=== PATIENT | female | born 1965 | race Caucasian/White ===

== ENCOUNTER 2020-03-26 08:09 | Outpatient (CLI) | payer OTHER, SELFPAY ==
--- NOTE | ~2020-03-26 | XR_ITS ---
XR knee RT 3V 03/26/2020 08:50 INDICATION: Right knee pain PROCEDURE: 3 views right knee COMPARISON: No prior studies for comparison. FINDINGS: Fracture, dislocation or subluxation is not identified. There is mild osteoarthritis of the right knee. Small joint effusion. The soft tissues appear within normal limits. No foreign bodies a re identified. IMPRESSION: 1: Mild osteoarthritis of the right knee. 2: Small joint effusion. Reviewed, dictated and finalized at location A. MASTER
[2020-03-26 10:47] LABS: Alanine Aminotransferase 38 U/L (4-35); Albumin Level 4.4 g/dL (3.5-5.1); Alkaline Phosphatase 82 U/L (38-126); Anion Gap 8 mmol/L (8-16); Aspartate Amino Transferase 31 U/L (14-36); Bilirubin,Total 0.4 mg/dL (0.2-1.3); Blood Urea Nitrogen 18 mg/dL (7-17); Calcium 9.5 mg/dL (8.4-10.2); Carbon Dioxide 29 mmol/L (22-30); Chloride 103 mmol/L (98-107); Estimated Glomerular Filt Rate > 60; Glucose 96 mg/dL (65-105); Sodium 140 mmol/L (137-145)
[2020-03-29 11:57] LABS: GGT 45 U/L (3-70)
== END 2020-03-26 08:10 | disposition home or self-care (01) ==
PROVIDERS: PCP Family Medicine; Visit Provider Family Medicine
DX: R94.5 Abnormal results of liver function studies (principal); M25.561 Pain in right knee; M17.11 Unilateral primary osteoarthritis, right knee; M25.461 Effusion, right knee
CPT/HCPCS: 36415; 73562; 80053; 82977

== ENCOUNTER 2020-04-07 08:48 | Outpatient (RCR) | payer OTHER, SELFPAY ==
--- NOTE | 2020-04-07 10:05 | PTOPEVAL ---
Thank you for referring Cassi Dial to [facility].? The patient is scheduled to be seen for therapy? __2__x/week for 8 visits. Please review, sign, date and return this plan of care FRANKLIN. I agree with and certify that the following plan of care is medically necessary. Referring Physician Date Admitting Provider: Attending Provider: Lalo Santana MD Referring Provider: *PT Outpatient Evaluation Start: 04/07/20 09:05 Freq: Status: Active Protocol: Document 04/07/20 09:05 RUBEN (Rec: 04/07/20 10:03 RUBEN [email or web address]) Therapy Assessment Status Assessment Status Assessment Status Evaluation Evaluation Information Problem Diagnosis right knee pain Onset 10/07/19 Subjective Information Pt. reports that she noticed a Query Text:As Reported By Patient/ gradual onset of right knee Family pain about 6 months ago. She first started noting pain with squatting. She reports that when she attempts to get up from a squat she needs help getting up. Pt. reports that stairs can also increase her pain. 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 She reports that her goal is to be able to squat without pain increase. 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 Hand Dominance Right Activity of Daily Living Ability Independent Indoor/Home Mobility Independent Community Mobility Independent Stairs Ability Independent Functional Cognition (Planning, Shopping Independent , Taking Medications) Cooking Yes Cleaning Yes Laundry Yes Shopping Yes Driving Yes Pain Assessment Pain Scale Pain Scale Used Numeric (1 - 10) Self Report Pain Assessment Right Knee(s) Reported Pain Level 0 Pain Description Tightness Lowest Pain Intensity 0 Greatest Pain Intensity 7 Pain Aggravating Factors Lifting,Stair Climbing Pain Score Pain Score 0: Self Report Interventions Used Interventions Used By Clinicians Activity or ADL's,Exercise Lower Extremity Range of Motion General Lower Extremity Range of Motion Gross Lower Extremity Range of Motion pt. presents with 0-130 Comments degrees bilateral knee joint
== END 2020-04-30 09:46 | disposition home or self-care (01) ==
LOC: CHSPT 08:48
PROVIDERS: PCP Family Medicine; Visit Provider Family Medicine
DX: M25.561 Pain in right knee (principal)
CPT/HCPCS: 97110; 97161; 97530

== ENCOUNTER 2020-04-18 07:18 | Outpatient (CLI) | payer OTHER, SELFPAY ==
--- NOTE | ~2020-04-18 | MM_ITS ---
EXAMINATION: MM screening [facility] BI w inessa HISTORY: Screening mammogram TECHNIQUE: Craniocaudal and mediolateral oblique 3-D tomosynthesis images were obtained and synthetic 2-D images were generated. CAD analysis was submitted and interpreted. COMPARISON: 04/06/2016, 04/01/2015, 03/21/2015 BREAST PARENCHYMAL COMPOSITION: There are scattered areas of fibroglandular density. FINDINGS: There is no evidence of suspicious mass, calcification, or architectural distortion to sugg est malignancy in either breast. There has been no suspicious interval change. IMPRESSION: 1. No mammographic evidence of malignancy. 2. Recommend routine screening mammography in one year. BI-RADS Category 1: Negative Reviewed, dictated and finalized at location A. BUILDER
== END 2020-04-18 07:19 | disposition home or self-care (01) ==
PROVIDERS: PCP Family Medicine; Visit Provider Family Medicine
DX: Z12.31 Encounter for screening mammogram for malignant neoplasm of breast (principal)
CPT/HCPCS: 77063; 77067

== ENCOUNTER → 2020-04-21 15:07 | Outpatient (REF) | payer OTHER, SELFPAY | LOC: ANHLAB 15:07 | PROVIDERS: PCP Family Medicine; Visit Provider Nurse Practitioner | DX: R22.9 Localized swelling, mass and lump, unspecified (principal); L72.11 Pilar cyst | CPT/HCPCS: 88304 ==

== ENCOUNTER 2024-09-13 09:15 | Outpatient (CLI) | payer BC, SELFPAY ==
--- OUTSIDE RECORDS SUMMARY | 2024-09-13 09:23 | XMS_ITS | Clinical Summary ---
Author Organization [facility] Address [address] [place] [id number] Care Team Providers Care Asic Design Engineer Name Role Phone Lalo Santana MD Primary Care Provider [phone] Allergies No known active allergies Medications No known medications Family History Medical History Relation Comments No Known Problems Brother Hypertension Father Mental Health Mother Relation Status Comments Brother Alive Father Alive Mother Social History Tobacco Use Types Packs/Day Years Used Date Smoking Tobacco: Never Smokeless Tobacco: Never Alcohol Use Standard Drinks/Week Comments Not Currently 0 (1 standard drink = 0.6 oz pur e alcohol) Comments No Sex and Gender Information Value Date Recorded Sex Assigned at Not on file Legal Sex Female 12:32 PM CDT Gender Identity Not on file Sexual Orientation Not on file Last Filed Vital Signs Vital Sign Reading Time Taken Comments Blood Pressure 116/74 05/29/2021 1:44 AM LIGHT ADJUSTER Pulse 70 05/29/2021 1:44 AM LIGHT ADJUSTER Temperature 36.6 C (97.9 F) 05/29/2021 1:44 AM LIGHT ADJUSTER Respiratory Rate 16 05/29/2021 1:44 AM LIGHT ADJUSTER Oxygen Saturation 100% 05/29/2021 1:44 AM LIGHT ADJUSTER Inhaled Oxygen Concentration - - Weight 93 kg (205 lb) 05/29/2021 1:44 AM LIGHT ADJUSTER Height 170.2 cm (5' 7 ) 05/29/2021 1:44 AM LIGHT ADJUSTER Body Mass Index 32.11 05/29/2021 1:44 AM LIGHT ADJUSTER Plan of Treatment Health Maintenance Due Date Last Done Comments Cervical Cancer Screening Pa p Smear (Age 30 to 64) Every 3 Years 1965 Colorectal Cancer Screening Colonoscopy (10 Years) 1965 Annual Physical 02/03/1968 Hepatitis C 1983 DTaP, Tdap and Td Vaccines ( 1 - Tdap) 02/03/1984 Cervical Cancer Screening Pa p with HPV Testing (Age 30 to 64) Every 5 Years 1995 Cervical Cancer Screening with HPV 1995 Mammogram Screening 2005 Pneumococcal Vaccine: 50+ Ye ars (1 of 1 - PCV) 2015 Zoster Vaccines (1 of 2) 2015 COVID-19 Vaccine (1 - 2023-2 5 season) 2024 Meningococcal B Vaccine Aged Out No l onger eligible based on patient's age to complete this topic Meningococcal Vaccine Aged Out No lilibeth richard eligible based on patient's age to complete this topic RSV Immunizations Under 20 Months Aged Out No longer eligible based on patient's age to complete this topic Insurance [employer] Care Teams Asic Design Engineer Relationship Specialty Start Date End Date Lalo Santana MD [address] [place] [address] PCP - General FAMILY PRACTICE 01/19/21
[2024-09-13 09:42] LABS: Hematocrit 39.5 % (35.0-49.0); Hemoglobin 13.3 g/dL (12.0-15.0); Mean Corpuscular HGB Conc 33.7 g/dL (32-36); Mean Corpuscular Hemoglobin 29.1 pg (27.0-31.0); Mean Corpuscular Volume 86.4 fL (78.0-102.0); Mean Platelet Volume 8.9 fl (9.2-11.8); Platelet Count Result 276 K/mm3 (150-420); Red Blood Count 4.57 M/mm3 (4.20-5.40); Red Cell Distribution Width 12.5 % (11.6-14.4); White Blood Count 7.3 K/mm3 (4.8-10.8)
[2024-09-13 09:45] LABS: Add Urine Microscopic? NO; Appearance Urine Clear (Clear); Bilirubin Urine Negative (Negative); Blood Urine Negative (Negative); Color Urine Yellow (Yellow); Glucose Urine UA Negative (Negative); Ketones Urine Negative (Negative); Leukocyte Esterase Ur Negative (Negative); Nitrate Urine Negative (Negative); Protein Urine Negative (Negative); Specific Grav Ur >= 1.030 (1.010-1.020); Urobilinogen Urine 0.2 mg/dL (0.2-1.0)
[2024-09-13 10:04] LABS: Alanine Aminotransferase 22 U/L (6-35); Albumin Level 4.3 g/dL (3.5-5.1); Alkaline Phosphatase 79 U/L (38-126); Anion Gap 6 mmol/L (4-12); Aspartate Amino Transferase 24 U/L (14-36); Bilirubin,Total 0.7 mg/dL (0.2-1.3); Blood Urea Nitrogen 12 mg/dL (7-17); Calcium 9.2 mg/dL (8.4-10.2); Carbon Dioxide 25 mmol/L (22-30); Chloride 105 mmol/L (98-107); Cholesterol 246 mg/dL (0-200); Estimated Glomerular Filt Rate > 60; Glucose 92 mg/dL (65-110); HDL Direct 93 mg/dL; LDL Cholesterol Calculated 137 mg/dL (<130); Osmolality Calculated 281 mOsm/kg (285-295); Potassium 3.9 mmol/L (3.4-5.0); Sodium 136 mmol/L (137-145); Total Protein 7.1 g/dL (6.3-8.2); Triglycerides 82 mg/dL (<150)
[2024-09-13 11:14] LABS: GGT 48 U/L (5-55)
[2024-09-21 14:16] LABS: Basophils Percent Auto 1.1 % (0.0-1.0); Eosinophils Percent Auto 1.5 % (1.0-6.0); Immature Granulocyte Absolute 0.05 K/mm3 (0.00-0.00); Immature Granulocyte Percent A 0.7 % (0.0-0.0); Lymphocytes Absolute Auto 1.95 K/mm3 (1.10-4.50); Monocytes Percent Auto 7.9 % (2.0-11.0); Neutrophils Absolute Auto 4.47 K/mm3 (1.70-7.20); Neutrophils Percent Auto 61.8 % (50.0-70.0)
[2024-09-21 14:24] LABS: Basophils Absolute Auto 0.08 K/mm3 (0.00-0.10); Eosinophils Absolute Auto 0.11 K/mm3 (0.02-0.50); Monocytes Absolute Auto 0.57 K/mm3 (0.10-0.90)
== END 2024-09-13 09:16 | disposition home or self-care (01) ==
PROVIDERS: PCP Family Medicine; Visit Provider Family Medicine
DX: R74.8 Abnormal levels of other serum enzymes (principal); Z13.220 Encounter for screening for lipoid disorders; R30.0 Dysuria
CPT/HCPCS: 36415; 80053; 80061; 81003; 82977; 85025; 85027

== ENCOUNTER 2024-09-27 14:26 | Outpatient (CLI) | payer BC, SELFPAY ==
--- NOTE | ~2024-09-27 | MM_ITS ---
EXAMINATION: MM screening [facility] BI w inessa HISTORY: Screening TECHNIQUE: Craniocaudal and mediolateral oblique 3-D tomosynthesis images were obtained and synthetic 2-D images were generated. CAD analysis was submitted and interpreted. COMPARISON: Comparison to multiple prior studies sequentially, with oldest reviewed study dated 03/03. BREAST PARENCHYMAL COMPOSITION: Not dense: There are scattered areas of fibroglandular density. FINDINGS: There is no evidence of suspicious mass, calcification, or architectural distortion to sugg est malignancy in either breast. There has been no suspicious interval change. IMPRESSION: 1. No mammographic evidence of malignancy. 2. Recommend routine screening mammography in one year. BI-RADS Category 1: Negative Reviewed, dictated and finalized at location A.
--- NOTE | ~2024-09-27 | DEXA_ITS ---
Bone Density Report Name: KIKE HUMPHREY Age: 59 Sex: Female Ethnicity: White Date of : 1965 Indication: screening for osteoporosis; height loss; Referring Provider: DELFINA, YOSI Mcfarland Study: Bone densitometry was performed. Exam Date: September 27, 2024 Accession number: [id number] Bone Density: Region BMD T-score Z-score Classification AP Spine(L1-L4) 1.128 0.7 2.1 Normal Femoral Neck (Left) 0.697 -1.4 -0.1 Osteopenia Total Hip (Left) 0.896 -0.4 0.5 Normal Femoral Neck (Right) 0.725 -1.1 0.1 Osteopenia Total Hip (Right) 0.926 -0.1 0.8 Normal Femoral Neck Mean 0.711 -1.2 0.0 Osteopenia Total Hip Mean 0.911 -0.3 0.7 Normal World Health Organization criteria for BMD impression classify patients as: Normal (T-score at or above -1.0), Osteopenia (T-score between -1.0 and -2.5), or Osteoporosis (T-score at or below -2.5). Clinical Information Provided by Patient: Has used the following medications: Vitamin D, Calcium Patient maximum height was 68 No regular weight bearing exercise Drinks caffeinated beverages Onset of menses at age 14 Premenopausal Number of children 2 Impression: The patient's bone mass is within expected range for age, gender and ethnicity. Discussion: BONE DENSITY IS WITHIN EXPECTED LIMITS FOR AGE, SEX AND RACE. Bone density is within expected limits for age, sex and race at all sites measured. The patient should follow a healthful lifestyle (good nutrition with adequate calcium and vitamin D, and appropriate weight-bearing exercise). Follow-Up: Consider repeating this study in 2 to 3 years to reassess this patient's status, or sooner if there is some new clinical indication. Reported by: SAMANTHA on 09/27/2024 2:47:00 PM. Reviewed, dictated and finalized at location A.
== END 2024-09-27 14:27 | disposition home or self-care (01) ==
PROVIDERS: PCP Family Medicine; Visit Provider Nurse Practitioner Family
DX: Z12.31 Encounter for screening mammogram for malignant neoplasm of breast (principal); Z78.0 Asymptomatic menopausal state; M85.89 Other specified disorders of bone density and structure, multiple sites
CPT/HCPCS: 77063; 77067; 77080